=== PATIENT | male | born 1990 | race Caucasian/White ===

== ENCOUNTER 2017-04-15 06:25 | Emergency (ER) | payer BC, OTHER ==
[2017-04-15 07:04] VITALS: BP 124/73; PULSE 90; TEMP 100.1; BMI 33.5
[2017-04-15] MEDS ORDERED: ONDANSETRON 4 MG/2 ML VIAL IVPUSH ONE (09:05)
[2017-04-15] MEDS ORDERED: MAG HYDROX/AL HYDROX/SIMETH 30 ML UNIT-DOSE CUP PO ONE (09:05)
--- NOTE | 2017-04-15 09:05 | PDOC ---
History of Present Illness - History of Present Illness Initial Comments: Previously healthy 26 year old male presenting with nausea, vomiting, and diarrhea since last night. He had 2 episodes of NBNB vomiting and 5 episodes of NB diarrhea since last night at approximately 21:30. He had a chicken Caesar salad wrap at a dinner about an hour before the vomiting started. Denies fevers , chills, chest pain, SOB, swelling, syncopal sensation, abdominal surgery, antibiotic usage, urinary symptoms, recent sick contacts, or other symptoms. 04/15/17 09:07 <Clari Blackman - Last Filed: 04/15/17 11:02> <Uriah Sosa - Last Filed: 04/15/17 11:26> - General Chief Complaint: Vomiting/Diarrhea Stated Complaint: VOMITING,DIARRHEA Time Seen by Provider: 04/15/17 09:05 Past History - Past Medical History COPD: No Other medical history: denies - Suicide/Smoking/Psychosocial Hx Smoking Status: No Smoking History: Current every day smoker Have you smoked in the past 12 months: Yes Number of Cigarettes Smoked Daily: 1 Information on smoking cessation initiated: No Hx Alcohol Use: No Drug/Substance Use Hx: No Substance Use Type: None <Clari Blackman - Last Filed: 04/15/17 11:02> <Uriah Sosa - Last Filed: 04/15/17 11:26> - Past Medical History Allergies/Adverse Reactions: Allergies Allergy/AdvReac Type Severity Reaction Status Date / Time No Known Allergies Allergy Verified 04/15/17 07:00 Home Medications: Ambulatory Orders Ondansetron [Zofran Odt -] 4 mg SL BID PRN #14 od.tablet 04/15/17 Review of Systems - Review of Systems Constitutional: No: Chills, Diaphoresis, Fever HEENTM: No: Blurred Vision Respiratory: No: Cough, Shortness of Breath, Stridor, Wheezing Cardiac (ROS): No: Chest Pain ABD/GI: Yes: Diarrhea, Vomiting. No: Nausea, Tarry Stools : No: Burning, Dysuria, Discharge Musculoskeletal: No: Back Pain Integumentary: No: Erythema, Flushing, Lesions Neurological: Yes: Headache. No: Paresthesia, Weakness Psychiatric: No: Anxiety, Depression <Clari Blackman - Last Filed: 04/15/17 11:02> *Physical Exam - Vital Signs Last Vital Signs Temp Pulse Resp BP Pulse Ox 100.1 F H 90 20 124/73 98 04/15/17 07:01 04/15/17 07:01 04/15/17 07:01 04/15/17 07:01 04/15/17 07:01 - Physical Exam General Appearance: Yes: Nourished, Appropriately Dressed. No: Apparent Distress HEENT: positive: EOMI, VANE, Normal ENT Inspection, Normal Voice Neck: positive: Trachea midline, Normal Thyroid, Rigid, Supple. negative: Tender Respiratory/Chest: positive: Lungs Clear, Normal Breath Sounds. negative: Chest Tender, Respiratory Distress, Accessory Muscle Use Cardiovascular: positive: Regular Rhythm, Regular Rate Gastrointestinal/Abdominal: positive: Normal Bowel Sounds, Tender (Slight epigastric tenderness ), Flat, Soft Extremity: positive: Normal Capillary Refill, Normal Inspection, Normal Range of Motion. negative: Tender Integumentary: positive: Normal Color, Dry, Warm Neurologic: positive: Fully Oriented, Alert, Normal Mood/Affect, Normal Response , Motor Strength 5/5 <Clari Blackman - Last Filed: 04/15/17 11:02> - Vital Signs Last Vital Signs Temp Pulse Resp BP Pulse Ox 100.1 F H 90 20 124/73 98 04/15/17 07:01 04/15/17 07:01 04/15/17 07:01 04/15/17 07:01 04/15/17 07:01 <Uriah Sosa - Last Filed: 04/15/17 11:26> ED Treatment Course - LABORATORY CBC & Chemistry Diagram: 04/15/17 09:18 04/15/17 09:18 <Clari Blackman - Last Filed: 04/15/17 11:02> - LABORATORY CBC & Chemistry Diagram: 04/15/17 09:18 04/15/17 09:18 - ADDITIONAL ORDERS Additional order review: Laboratory Results 04/15/17 09:18 Sodium 140 Potassium 3.8 Chloride 102 Carbon Dioxide 28 Anion Gap 10 BUN 15 Creatinine 0.8 Creat Clearance w eGFR > 60 Random Glucose 98 Calcium 9.0 Total Bilirubin 0.8 AST 21 ALT 53 Alkaline Phosphatase 108 Total Protein 8.4 H Albumin 4.4 Lipase 97 04/15/17 09:18 RBC 5.51 MCV 92.3 MCHC 33.2 RDW 13.0 MPV 9.1 Neutrophils % 92.2 H Lymphocytes % 3.6 L Monocytes % 3.4 L Eosinophils % 0.4 Basophils % 0.4 - Medications Given in the ED: ED Medications Discontinued Medications Generic Name Dose Route Start Last Admin Trade Name Freq PRN Reason Stop Dose Admin Acetaminophen 1,000 mg 04/15/17 09:30 04/15/17 09:45 Tylenol - PO 04/15/17 09:31 1,000 mg ONCE ONE Administration Al Hydroxide/Mg Hydroxide 30 ml 04/15/17 09:05 04/15/17 09:45 Mylanta Oral Suspension - PO 04/15/17 09:06 30 ml ONCE ONE Administration Ondansetron HCl 4 mg 04/15/17 09:05 04/15/17 09:45 Zofran Injection IVPUSH 04/15/17 09:06 4 mg ONCE ONE Administration Sodium Chloride 1,000 ml 04/15/17 09:07 04/15/17 09:24 Normal Saline - IV 04/15/17 09:08 1,000 ml ONCE ONE Administration <Uriah Sosa - Last Filed: 04/15/17 11:26> Medical Decision Making - Medical Decision Making 26 year healthy male with symptoms consistent with gastroenteritis likely viral vs. preformed toxin in origin (had a Caesar salad wrap). Will treat with Zofran , Maalox, 1 L NS and get CBC + CMP w/ lipase. Will re-evaluate after meds and labs return. 04/15/17 09:42 Symptoms resolved after treatment and feels good enough to go home. Will write a prescription for Zofran and a work note for today. 04/15/17 11:02 <Clari Blackman - Last Filed: 04/15/17 11:02> *DC/Admit/Observation/Transfer - Discharge Dispostion Admit: No <Clari Blackman - Last Filed: 04/15/17 11:02> <Uriah Sosa - Last Filed: 04/15/17 11:26> Diagnosis at time of Disposition: Gastroenteritis - Discharge Dispostion Disposition: HOME Condition at time of disposition: Improved - Prescriptions Prescriptions: Ondansetron [Zofran Odt -] 4 mg SL BID PRN #14 od.tablet PRN Reason: Nausea And/Or Vomiting - Patient Instructions Printed Discharge Instructions: DI for Viral Gastroenteritis -- Adult Additional Instructions: Your nausea, vomiting, and diarrhea were likely due to a virus that will get better on its own. Please use Tylenol for fevers and the Zofran for nausea/ vomiting. Please return to the ED if you have new or worsening symptoms. - Post Discharge Activity Forms/Work/School Notes: Back to Work
[2017-04-15] MEDS ORDERED: SODIUM CHLORIDE 0.9% 1000 ML INFUS.BAG IV ONE (09:07)
[2017-04-15] MEDS ORDERED: ACETAMINOPHEN 500 MG TABLET (FP) PO ONE (09:30)
[2017-04-15] MEDS ORDERED: ACETAMINOPHEN 325 MG TABLET (FP) ONE (09:39)
[2017-04-15] MEDS ORDERED: ONDANSETRON 4 MG/2 ML VIAL ONE (09:39)
[2017-04-15] MEDS ORDERED: MAG HYDROX/AL HYDROX/SIMETH 30 ML UNIT-DOSE CUP ONE (09:39)
[2017-04-15 09:51] LABS: BASO % 0.4 % (0-2.0); EOS % 0.4 % (0-4.5); HEMATOCRIT 50.9 % (35.4-49); HEMOGLOBIN 16.9 GM/dL (11.7-16.9); LYMPH % 3.6 % (8-40); MCH 30.6 pg (25.7-33.7); MCHC 33.2 g/dl (32.0-35.9); MEAN CELL VOLUME 92.3 fl (80-96); MEAN PLT VOLUME 9.1 fl (7.5-11.1); MONO % 3.4 % (3.8-10.2); NEUT % 92.2 % (42.8-82.8); PLATELET COUNT 282 K/MM3 (134-434); RBC 5.51 M/mm3 (4.00-5.60); WHITE BLOOD COUNT 15.5 K/mm3 (4.0-10.0)
--- NOTE | 2017-04-15 09:53 | PDOC ---
Attending Attestation - Resident Resident Name: Clari Blackman - ED Attending Attestation I have performed the following: I have examined & evaluated the patient, The case was reviewed & discussed with the resident, I agree w/resident's findings & plan, Exceptions are as noted - HPI HPI: 04/15/17 09:50 "Patient is a 26 year old male with no significant past medical history who presents to the ED with complaints of nausea/vomiting/diarrhea that began last night. Patient reports eating a chicken caesar wrap last night, and about 1 hour later he began to feel nauseous. He reports experiencing 2 episodes of vomiting, followed by 5 episodes of watery brown diarrhea, prompting him to come into the ED for further evaluation. Patient reports experiencing intermittent epigastric abdominal pain that he states is a 4/10 in intensity, associated with vomiting. Denies chest pain, Sob. Denies fevers, chills. Denies contact with sick individuals, out of state traveling. Denies any other symptoms. Allergies: None Social history: No smoking. No alcohol. No illicit drugs. Surgical history: None PMD: None " - Physicial Exam PE: 04/15/17 09:52 "GENERAL: Awake, alert, and fully oriented, in no acute distress HEAD: No signs of trauma EYES: PERRLA, EOMI, sclera anicteric, conjunctiva clear ENT: Auricles normal inspection, hearing grossly normal, nares patent, oropharynx clear without exudates. Moist mucosa NECK: Nontender, no stepoffs, Normal ROM, supple, no lymphadenopathy, JVD, or masses LUNGS: Breath sounds equal, clear to auscultation bilaterally. No wheezes, and no crackles HEART: Regular rate and rhythm, normal S1 and S2, no murmurs, rubs or gallops ABDOMEN: +epigastric TTP, no rebound/guarding EXTREMITIES: Normal range of motion, no edema. No clubbing or cyanosis. No cords, erythema, or tenderness NEUROLOGICAL: Cranial nerves II through XII intact. 5/5 strength and sensation in all extremities, Normal speech, normal gait SKIN: Warm, Dry, normal turgor, no rashes or lesions noted. " - Medical Decision Making 04/15/17 09:52 26 M with N+V+D x 1 day. Vitals notable for temp of 100.1. Likely viral gastroenteritis. Pt's exam notable only for epigastric TTP. Negative young's, no lower quadrant tenderness to suggest surgical pathology. - Labs - GI cocktail - Reassess 04/15/17 11:02 labs unremarkable Pt reassessed - now feeling significantly better s/p IVF and meds. Abdominal exam benign at this time. Pt well appearing, with normal vitals, clinically stable for DC. I discussed the physical exam findings, ancillary test results and final diagnoses with the patient. I answered all of the patient's questions. The patient was satisfied with the care received and felt comfortable with the discharge plan and treatment plan. The patient agrees to follow up with the primary care physician within 24-72 hours.
[2017-04-15 10:33] LABS: ALBUMIN 4.4 g/dl (3.4-5.0); ALK PHOS 108 U/L (45-117); ANION GAP 10 (8-16); BILIRUBIN,TOTAL 0.8 mg/dL (0.2-1.0); BLOOD UREA NITROGEN 15 mg/dL (7-18); CHLORIDE 102 mmol/L (98-107); CO2 28 mmol/L (21-32); CREATININE 0.8 mg/dL (0.7-1.3); GLUCOSE,RANDOM 98 mg/dL (74-106); LIPASE 97 U/L (73-393); POTASSIUM 3.8 mmol/L (3.5-5.1); SGOT/AST 21 U/L (15-37); SGPT/ALT 53 U/L (12-78); SODIUM 140 mmol/L (136-145); TOT PROT 8.4 g/dl (6.4-8.2)
== END 2017-04-15 11:43 | disposition home or self-care (01) ==
LOC: JER 06:25
PROC: 3E0337Z Introduction of Electrolytic and Water Balance Substance into Peripheral Vein, Percutaneous Approach (ICD-10-PCS; principal; 2017-04-15)
PROC: 3E033GC Introduction of Other Therapeutic Substance into Peripheral Vein, Percutaneous Approach (ICD-10-PCS; 2017-04-15)
DX: A08.4 Viral intestinal infection, unspecified (principal)
CPT/HCPCS: 36415; 80053; 83690; 85025; 99281-25